=== PATIENT | male | born 1945 | race Caucasian/White ===

== ENCOUNTER 2019-04-10 15:46 | Emergency (ER) | payer MEDICARE ==
[2019-04-10] MEDS ORDERED: Nitroglycerin 50 MG/250 ML BOT 250 ML ONE (16:22)
[2019-04-10] MEDS ORDERED: Nitroglycerin 0.4 MG TAB 1 EACH ONE ×2 (16:22→18:41)
[2019-04-10] MEDS ORDERED: Aspirin Chewable 81 MG TAB ONE (16:22)
[2019-04-10 17:06] LABS: #Basophils 0.1 thou/uL (0.0-0.2); #Eosinphils 0.3 thou/uL (0.0-0.7); #Lymphocytes 1.2 thou/uL (1.20-3.40); #Monocytes 0.8 thou/uL (0.11-0.59); %Basophils 0.9 % (0.0-1.0); %Eosinophils 3.9 % (0.0-10.0); %Lymphocytes 13.7 % (21.0-51.0); %Monocytes 9.5 % (0.0-10.0); Hemoglobin 10.9 g/dL (14.0-18.0); Mean Corpuscular HGB CONC 32.8 g/dL (32.0-36.0); Mean Corpuscular Hemoglobin 31.6 pg (27.0-31.0); Mean Corpuscular Volume 96.1 fL (78.0-98.0); Mean Platelet Volume 7.5 fL (7.4-10.4); Platelet Count 152 thou/uL (130-400); RBC Distribution Width 13.3 % (11.5-14.5); Red Blood Cell (RBC) Count 3.45 mill/uL (4.70-6.10); White Blood Cell (WBC) Count 8.4 thou/uL (4.8-10.8)
[2019-04-10 17:20] LABS: ALT (SGPT) 8 U/L (8-55); AST (SGOT) 9 U/L (5-34); Albumin 3.7 g/dL (3.4-4.8); Alkaline Phosphatase 51 U/L (40-110); Anion Gap 17 mmol/L (10-20); BUN (Urea Nitrogen) 30 mg/dL (8.4-25.7); Bilirubin, Total 0.4 mg/dL (0.2-1.2); Calc. Creatinine Clearance 0 mL/min (70-130); Calcium 9.3 mg/dL (7.8-10.44); Carbon Dioxide 23 mmol/L (23-31); Chloride 99 mmol/L (98-107); Estimated GFR-MDRD 11; Globulin 3.3 g/dL (2.4-3.5); Glucose 404 mg/dL (83-110); Potassium 3.9 mmol/L (3.5-5.1); Sodium 135 mmol/L (136-145)
[2019-04-10 17:38] LABS: CKMB 2.2 ng/mL (0-6.6)
--- NOTE | 2019-04-10 19:22 | CT ---
CT OF THE BRAIN WITHOUT CONTRAST: 04/10/19 The ventricle are normal in size for age and atrophy. There is no intracranial bleeding, mass or sign of stroke. There is no evidence of extra-axial hematoma. The calvarium appears intact. The visible paranasal sinuses are clear. Visible facial bones showed no acute changes. IMPRESSION: No acute intracranial finding. POS: HOME
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
--- NOTE | 2019-04-10 19:45 | CT ---
CT OF THE CERVICAL SPINE 04/10/19 Comparison is made with an 01/26/16 study. Overall, there have been very little or very few changes in this interval. Cervical spine is rather straight which could be due to muscle spasm. There is disc s pace narrowing present at most levels below C4. Prominent anterior osteophytes are seen at C4 and C5 levels. The C1 to dens distance is normal and the soft tissues are normal in thickness. No fractures were appreciated. Findings by level follow: C1-C2: No acute findings. C2-C3: No acute findings. Prominent left facet arthritis. Minimal left foraminal narrowing. C3-C4: Severe right foraminal narrowing and severe right facet arthritis. C4-C5: Small central bulge of a disc osteophyte complex which was present previously. Mild left celestino inal narrowing. C5-C6: Mild bilateral foraminal narrowing. C6-C7: There is mild to moderate left foraminal narrowing. C7-T1: No acute findings. T1-T2: No acute findings. The thyroid gland seems somewhat inhomogeneous but I am hard pressed to find a discrete mass. IMPRESSION: Degenerative change but no acute traumatic findings. POS: HOME
== END 2019-04-10 18:54 | disposition short-term general hospital (02) ==
LOC: BURERS 15:46
DX: M54.6 Pain in thoracic spine (principal); M54.2 Cervicalgia; R51 Headache; I50.9 Heart failure, unspecified; E87.70 Fluid overload, unspecified; I25.2 Old myocardial infarction; E78.5 Hyperlipidemia, unspecified; E11.9 Type 2 diabetes mellitus without complications; Z87.891 Personal history of nicotine dependence; Z79.899 Other long term (current) drug therapy; Y04.2XXA Assault by strike against or bumped into by another person, initial encounter
CPT/HCPCS: 70450; 71250; 72125; 80053; 82553; 83880; 84484; 85025; 93005; 96365; 96366